=== PATIENT | male | born 1960 | race Caucasian/White ===

== ENCOUNTER 2021-08-27 13:37 | Emergency (ER) | payer BC ==
[2021-08-27 14:36] LABS: ANION GAP 18.3 mmol/L (5-15); CHLORIDE,CL 101 mmol/L (98-107); SODIUM,NA 139 mmol/L (136-145)
== END 2021-08-27 16:10 | disposition home or self-care (01) ==
LOC: KA.ED 13:37
DX: K56.7 Ileus, unspecified (principal); Z79.899 Other long term (current) drug therapy
CPT/HCPCS: 36415; 74021; 80053; 81003; 83690; 85025; 99284-25

== ENCOUNTER 2021-10-15 07:56 | Day surgery (SDC) | payer BC ==
[2021-10-15] MEDS ORDERED: Sodium Chloride 0.9% 10 ML Syringe FLUSH PRN (08:00)
[2021-10-15] MEDS: Lactated Ringers 1,000 ML IV SCH (08:30)
[2021-10-15] MEDS ORDERED: Midazolam 1 MG/ML 2 ML SDV ONE (08:54)
[2021-10-15] MEDS ORDERED: Propofol 200 MG/20 ML SDV ONE (08:55)
== END 2021-10-15 11:00 | disposition home or self-care (01) ==
LOC: KA.SDS 07:56
PROVIDERS: ATTEND Surgery
DX: D12.0 Benign neoplasm of cecum (principal); K57.30 Diverticulosis of large intestine without perforation or abscess without bleeding; I10 Essential (primary) hypertension; N52.9 Male erectile dysfunction, unspecified; E55.9 Vitamin D deficiency, unspecified; Z98.890 Other specified postprocedural states; Z79.899 Other long term (current) drug therapy; Z80.0 Family history of malignant neoplasm of digestive organs
CPT/HCPCS: 00812; J2250; J2704; J3490; J7120

== ENCOUNTER 2022-10-02 19:31 | Emergency (ER) | payer BC ==
[2022-10-02] MEDS: Diphtheria,Pertussis(Acell),Tetanus Vaccine 0.5 ML Syringe IM ONE (20:21)
[2022-10-02] MEDS: Lidocaine 1% 5 ML VIAL INJECT ONE (20:24)
[2022-10-02] MEDS: Bacitracin/Neomycin/Polymyxin B Oint 0.9 GM U/D Packet ONE (22:20)
[2022-10-02] MEDS: Bacitracin Oint 28.35 GM Tube TOP SCH (22:26)
== END 2022-10-02 22:22 | disposition home or self-care (01) ==
LOC: KA.ED 19:31
DX: S06.0X1A Concussion with loss of consciousness of 30 minutes or less, initial encounter (principal); S01.311A Laceration without foreign body of right ear, initial encounter; I10 Essential (primary) hypertension; Z23 Encounter for immunization; Z79.899 Other long term (current) drug therapy; W18.30XA Fall on same level, unspecified, initial encounter; Y92.511 Restaurant or cafe as the place of occurrence of the external cause
CPT/HCPCS: 12015; 70450; 90471; 90715; 93010; 99283-25; 99284; J3490

== ENCOUNTER 2025-02-28 08:30 | Day surgery (SDC) | payer BC ==
[~2025-02-28 08:30] MED LIST: Sodium Chloride 0.9% 10 ML Syringe FLUSH PRN
[2025-02-28] MEDS: Lactated Ringers 1,000 ML IV SCH (08:42)
[2025-02-28] MEDS ORDERED: Propofol 200 MG/20 ML SDV ONE (08:48)
[2025-02-28] MEDS ORDERED: Sodium Chloride 0.9% 10 ML Syringe FLUSH PRN (09:30)
[2025-02-28] MEDS ORDERED: Lactated Ringers 1,000 ML IV SCH (09:30)
== END 2025-02-28 11:10 | disposition home or self-care (01) ==
LOC: KA.SDS 08:30
PROVIDERS: ATTEND Surgery
DX: Z12.11 Encounter for screening for malignant neoplasm of colon (principal); K57.30 Diverticulosis of large intestine without perforation or abscess without bleeding; I10 Essential (primary) hypertension; F17.200 Nicotine dependence, unspecified, uncomplicated; Z80.0 Family history of malignant neoplasm of digestive organs; Z79.899 Other long term (current) drug therapy; Z86.0100 Personal history of colon polyps, unspecified
CPT/HCPCS: 00811; J2704; J7120